=== PATIENT | male | born 1985 | race Caucasian/White ===

== ENCOUNTER 2017-01-30 21:11 | Emergency (ER) | payer OTHER ==
[2017-01-30 21:21] VITALS: TEMP 97.3
--- NOTE | 2017-01-30 21:25 | EDPHY ---
H & P Stated Complaint: left sided headache, l arm numbness - Personal History Current Tetanus Diphtheria and Acellular Pertussis (TDAP): Yes - Medical/Surgical History Hx Asthma: No Hx Chronic Respiratory Disease: No Hx Diabetes: No Hx Cardiac Disease: No Hx Renal Disease: No Hx Cirrhosis: No Hx Alcoholism: No Hx HIV/AIDS: No Hx Splenectomy or Spleen Trauma: No Other PMH: gout, htn, paroxysmal hemicardia - Social History Smoking Status: Never smoked Time Seen by Provider: 01/30/17 21:24 Constitutional: Initial Vital Signs Temperature (C) 36.3 C 01/30/17 21:18 Heart Rate 89 01/30/17 21:18 Respiratory Rate 20 01/30/17 21:18 Blood Pressure 197/145 H 01/30/17 21:18 O2 Sat (%) 98 01/30/17 21:18 O2 Delivery Mode Room Air Allergies/Adverse Reactions: No Known Allergies Allergy (Unverified 01/30/17 21:18) Home Medications: Medication Instructions Recorded Allopurinol 01/30/17 Indomethacin 01/30/17 Lisinopril 01/30/17 Medical Decision Making ED Course/Re-evaluation: CHIEF COMPLAINT: Headache HISTORY OF PRESENT ILLNESS: The patient is a 32 y/o male complaining of headache onset this evening. He experienced pressure on the left side of his skull between his cheondoism and ear a few weeks ago that was accompanied by an "electrical feeling". He was evaluated by neurology who had a presumptive diagnosis pending an MRI scheduled in a few weeks. Over the past few days he has experienced some chills and cold sweats. Today he finished dinner when he began experiencing a headache, tingling and numbness from his head into his chest, and a "cold feeling". He denies uncoordination or other associated symptoms. REVIEW OF SYSTEMS: A 10 point review of systems was performed and is negative with the exception of the elements mentioned in the history of present illness. PHYSICAL EXAM: HR, BP, O2 Sat, RR. Temp noted General Appearance: Alert, well hydrated, appropriate, and non-toxic appearing. Slow speech. Head: Atraumatic without scalp tenderness or obvious injury Eyes: Pupils equal, round, reactive to light and accommodation, EOMI, no trauma , no injection. Ears: Clear bilaterally, no perforation, normal landmarks Nose: Atraumatic, no rhinorrhea, clear. Throat: There is no erythema or exudates, no lesions, normal tonsils, mucus membranes moist. Neck: Supple, nontender, no lymphadenopathy. Respiratory: No retractions, no distress, no wheezes, and no accessory muscle use. Lungs are clear to auscultation bilaterally. Cardiovascular: Regular rate and rhythm, no murmurs, rubs, or gallops. Good capillary refill all extremities. Gastrointestinal: Abdomen is soft, nontender, non-distended, no masses, no rebound, no guarding, no peritoneal signs. Musculoskeletal: Normal active ROM of all extremities, atraumatic. Neurological: Alert, appropriate, and interactive. The patient has normal DTRs and non-focal cranial nerves, motor, sensory, and cerebellar exam. Skin: No rashes, good turgor, no nodules on palpation. Past medical history: Denies Past surgical history: Denies Family history: Non-contributory Social history: Family at bedside, employed, regular exercise DIAGNOSTICS/PROCEDURES/CRITICAL CARE TIME: DIFFERENTIAL DIAGNOSIS: The differential diagnosis for the patient's headache included but was not limited to subarachnoid hemorrhage, migraine headache, tension headache and infectious causes such as meningitis, pharyngitis and sinusitis. MEDICAL DECISION MAKING: The patient is a 32 y/o male with a history of headaches complaining of a headache. He has an MRI scheduled through neurology for a few weeks from now through neurology. He began to suddenly experience a headache tonight. He reports numbness, tingling, and "cold feeling" in his chest. Plan for labs and MRI. (Abhishek Jo) 0102: Patient's MRI results with without contrast called to me by Dr. rashad Jones. This is unremarkable MRI. No bleed tumor stroke. Does show an arachnoid cyst in the posterior region. Unremarkable otherwise. I did update the patient family at bedside about his MRI and that is normal. I do recommend he has close follow-up with his neurologist Dr. Sy Bajwa return emergency room there is any worsening symptoms questions or concerns. I did answer all his questions. He feels comfortable going home. Return precautions given. (Santo Amaya) - Data Points Laboratory Results: Laboratory Results 01/30/17 21:30 01/30/17 21:30 01/30/17 01/30/17 21:30 21:30 WBC 8.29 10^3/uL 10^3/uL (3.80-9.50) RBC 5.73 10^6/uL 10^6/uL (4.40-6.38) Hgb 18.1 g/dL H g/dL (13.7-17.5) Hct 49.9 % % (40.0-51.0) MCV 87.1 fL fL (81.5-99.8) MCH 31.6 pg pg (27.9-34.1) MCHC 36.3 g/dL g/dL (32.4-36.7) RDW 12.7 % % (11.5-15.2) Plt Count 250 10^3/uL 10^3/uL (150-400) MPV 10.6 fL fL (8.7-11.7) Neut % (Auto) 38.8 % L % (39.3-74.2) Lymph % (Auto) 48.1 % H % (15.0-45.0) [place] % (Auto) 8.1 % % (4.5-13.0) Eos % (Auto) 2.9 % % (0.6-7.6) Baso % (Auto) 1.7 % % (0.3-1.7) Nucleat RBC Rel Count 0.0 % % (0.0-0.2) Absolute Neuts (auto) 3.22 10^3/uL 10^3/uL (1.70-6.50) Absolute Lymphs (auto) 3.99 10^3/uL H 10^3/uL (1.00-3.00) Absolute Monos (auto) 0.67 10^3/uL 10^3/uL (0.30-0.80) Absolute Eos (auto) 0.24 10^3/uL 10^3/uL (0.03-0.40) Absolute Basos (auto) 0.14 10^3/uL H 10^3/uL (0.02-0.10) Absolute Nucleated RBC 0.00 10^3/uL 10^3/uL (0-0.01) Immature Gran % 0.4 % % (0.0-1.1) Immature Gran # 0.03 10^3/uL 10^3/uL (0.00-0.10) ESR 3 MM/HR MM/HR (0-15) Sodium 142 mEq/L mEq/L (134-144) Potassium 3.6 mEq/L mEq/L (3.5-5.2) Chloride 105 mEq/L mEq/L (97-110) Carbon Dioxide 18 mEq/l L mEq/l (22-31) Anion Gap 19 mEq/L H mEq/L (8-16) BUN 27 mg/dL H mg/dL (7-23) Creatinine 1.2 mg/dL mg/dL (0.7-1.3) Estimated GFR > 60 Glucose 121 mg/dL H mg/dL (70-100) Calcium 9.1 mg/dL mg/dL (8.5-10.4) Creatine Kinase 274 IU/L H IU/L (0-224) CK-MB (CK-2) Fraction 1.81 ng/mL ng/mL (0.00-3.19) CK-MB (CK-2) % 0.7 % % (0.0-4.0) Creatine Kinase Interp NEGATIVE (NEGATIVE) Medications Given: Discontinued Medications Sodium Chloride (Ns) 1,000 mls @ 0 mls/hr IV ONCE ONE PRN Reason: Wide Open Stop: 01/31/17 00:18 Last Admin: 01/31/17 00:35 Dose: 1,000 mls Lorazepam (Ativan Injection) 1 mg IVP EDNOW ONE Stop: 01/30/17 21:33 Last Admin: 01/30/17 21:41 Dose: 1 mg Departure - Departure Disposition: Home, Routine, Self-Care Clinical Impression: Headache Condition: Good Instructions: Acute Headache (ED) Additional Instructions: 1. Return emergency room if you have worsening symptoms. 2. I do recommend he follow up with your neurologist. Referrals: NOEL LYNN [Other] - As per Instructions Report Scribed for: Abhishek Jo Report Scribed by: Elodia Mcgovern Date of Report: 01/30/17 Time of Report: 22:17
[2017-01-30] MEDS ORDERED: LORazepam 2 MG/ML INJ IVP ONE (21:32)
[2017-01-30 21:43] LABS: % IMMATURE GRANULYOCYTES 0.4 % (0.0-1.1); ABSOLUTE IMMATURE GRANULOCYTES 0.03 10^3/uL (0.00-0.10); ADD DIFF? NO; ADD MORPH? NO; ADD SCAN? NO; ATYPICAL LYMPHOCYTE FLAG 10 (0-99); FRAGMENT RBC FLAG 0 (0-99); HEMATOCRIT 49.9 % (40.0-51.0); HEMOGLOBIN 18.1 g/dL (13.7-17.5); LEFT SHIFT FLG 0 (0-99); LIPEMIA HEMOLYSIS FLAG 90 (0-99); MEAN CELL HEMOGLOBIN 31.6 pg (27.9-34.1); MEAN CELL HEMOGLOBIN CONCENTR. 36.3 g/dL (32.4-36.7); MEAN CELL VOLUME 87.1 fL (81.5-99.8); MEAN PLATELET VOLUME 10.6 fL (8.7-11.7); PLATELET CLUMPS FLAG 0 (0-99); PLATELET COUNT 250 10^3/uL (150-400); RED BLOOD CELL COUNT 5.73 10^6/uL (4.40-6.38); RED CELL DISTRIBUTION WIDTH 12.7 % (11.5-15.2)
[2017-01-30 22:02] LABS: ANION GAP 19 mEq/L (8-16); CALCIUM 9.1 mg/dL (8.5-10.4); CARBON DIOXIDE 18 mEq/l (22-31); CHLORIDE 105 mEq/L (97-110); CREATININE 1.2 mg/dL (0.7-1.3); GLOMERULAR FILTRATION RATE > 60; GLUCOSE 121 mg/dL (70-100); POTASSIUM 3.6 mEq/L (3.5-5.2); SEDIMENTATION RATE 3 MM/HR (0-15); SODIUM 142 mEq/L (134-144)
[2017-01-30 22:04] VITALS: RESP 16
[2017-01-30 22:18] LABS: CK-MB INTERPRETATION NEGATIVE (NEGATIVE); CREATINE KINASE-MB FRACTION 1.81 ng/mL (0.00-3.19)
[2017-01-31] MEDS ORDERED: GADOBUTROL 10 ML VIAL IVP ONE (00:05)
[2017-01-31] MEDS ORDERED: NS 1,000 ML IV ONE (00:17)
[2017-01-31 00:37] VITALS: BP 119/77; PULSE 81; O2SAT 96
== END 2017-01-31 01:10 | disposition home or self-care (01) ==
DX: R51 Headache (principal); I10 Essential (primary) hypertension
CPT/HCPCS: 96374; A9585; J2060